=== PATIENT | female | born 1965 | race Caucasian/White ===

== ENCOUNTER → 2019-09-20 | Outpatient (CLI) | payer BC ==
[~2019-09-20] MED LIST: CHOL10002 PO; Cabergoline0.5 MG PO; Citalopram HBr20 MG PO
[2019-09-21 15:06] LABS: HPV 16 Negative (Negative); HPV 18 Negative (Negative); HPV OTHER HR TYPES Negative (Negative)
== END | disposition home or self-care (01) ==
LOC: LAB SHORT 12:36 → LAB 12:36
PROVIDERS: Obstetrics & Gynecology
DX: Z01.419 Encounter for gynecological examination (general) (routine) without abnormal findings (principal)
CPT/HCPCS: 87624; G0123

== ENCOUNTER → 2019-11-16 | Outpatient (CLI) | payer BC | END | disposition home or self-care (01) | LOC: LAB SHORT 07:30 → PLD 07:30 | DX: B36.1 Tinea nigra (principal); L60.2 Onychogryphosis | CPT/HCPCS: 88305; 88312 ==

== ENCOUNTER → 2020-10-16 | Outpatient (CLI) | payer BC ==
[2020-10-18 12:28] LABS: CORONAVIRUS (COVID19) CSH-NRL Negative (Negative)
== END | disposition home or self-care (01) ==
LOC: LAB SHORT 19:49 → LAB 19:49
PROVIDERS: Chiropractor
DX: B34.9 Viral infection, unspecified (principal); Z20.828 Contact with and (suspected) exposure to other viral communicable diseases
CPT/HCPCS: U0003

== ENCOUNTER 2021-04-26 10:56 | Emergency (ER) | payer OTHER ==
[~2021-04-26] VITALS: Ht 154.9 cm; Wt 69.4 kg
[2021-04-26] MEDS ORDERED: PRED20 PO (12:45)
== END 2021-04-26 13:05 | disposition home or self-care (01) ==
LOC: ER 10:56
DX: R07.81 Pleurodynia (principal); Z79.899 Other long term (current) drug therapy
CPT/HCPCS: 71260; 93005; 93010; 96374; 96375; 99285-25; J1100; J1885; Q9967

== ENCOUNTER 2023-04-01 06:30 | Inpatient (IN) | payer BC ==
[~2023-04-01] VITALS: Ht 154.9 cm; Wt 72.5 kg
[2023-04-01] VITALS (18 sets, daily range): BP systolic 128–176; BP diastolic 78–99
[~2023-04-01 06:30] MED LIST changes: +PRED20 PO
[2023-04-01] MEDS ORDERED: ESTR2 PO (07:06)
[2023-04-01] MEDS ORDERED: GINKGO60 MG (07:07)
--- NOTE | 2023-04-01 08:05 | NUR ---
0640 AMBULATE TO [facility], CONFIRMED SURGERY AND SURGEON, History, Chart, Medications and Allergies reviewed before start of procedure. LUNGS CLEAR. PRE OP TEACHING DONE, AT BEDSIDE. GLASSES GIVEN TO .
--- NOTE | 2023-04-01 11:24 | NUR ---
PT ARRIVED TO ROOM IN BED FROM PACU SPOUSE BEDSIDE. VSS. MOD AMOUNT LIGHT PINK DRAINAGE NOTED TO MEDIPORE DRESSING TO TRANSVERSE LOWER ABD. JODIE PAD CDI. MON CATH DRAINING YELLOW URINE. IV FLUIDS RUNNING PER ORDERS. KPAD TO ABD FOR COMFORT. PT C/O 08/08 ABD PAIN. STARTED SYSTEM DISPATCHER PER ORDERS. CALL LIGHT IN REACH.
--- NOTE | 2023-04-01 18:00 | NUR ---
SUMMARY NO ACUTE CHANGES SINCE ARRIVING TO FLOOR FROM PACU. PT HAS AMBULATED TO RESTROOM TWICE. MON CATH DC'D THIS EVENING PER ORDERS DUE TO PT'S DISCOMFORT. PT TOLERATED WELL. JODIE PAD CDI. MOD AMOUNT PINK DRAINAGE TO MEDIPORE DRESSING TO TRANSVERSE LOWER ABD HAS REMAINED UNCHANGED T/O SHIFT. PT AMBULATES W/SBA. CALL LIGHT AND VARNISH REMOVER IN REACH. MEDICATED ONCE DURING SHIFT FOR NAUSEA. PT EATING DINNER AT THIS TIME.
[2023-04-02 00:14] VITALS: BP 143/77
[2023-04-02 04:19] LABS: BASOPHILS ABSOLUTE AUTO 0.01 K/mm3 (0.00-0.23); BASOPHILS PERCENT AUTO 0 % (0-2); EOSINOPHILS PERCENT AUTO 0 % (0-6); Hematocrit 35.4 % (33.0-51.0); Hemoglobin 12.3 g/dL (11.5-16.0); IMMATURE GRAN ABSOLUTE AUTO 0.04 K/mm3 (0.00-0.10); IMMATURE GRAN PERCENT AUTO 0 % (0-1); LYMPHOCYTES PERCENT AUTO 12 % (21-46); MONOCYTES ABSOLUTE AUTO 1.07 K/mm3 (0.16-1.47); MONOCYTES PERCENT AUTO 8 % (4-13); Mean Corpuscular HGB 29.4 pg (26.0-34.0); Mean Corpuscular HGB Conc 34.7 g/dL (31.5-36.5); Mean Corpuscular Volume 85 fL (80-100); Mean Platelet Volume 10.4 fL (9.1-12.4); NEUTROPHILS ABSOLUTE AUTO 11.23 K/mm3 (1.96-9.15); NEUTROPHILS PERCENT AUTO 80 % (41-73); Platelet Count 287 K/mm3 (150-400); RDW Coefficient Variation 12.4 % (11.7-14.2); RDW Standard Deviation 37.9 fL (35.1-46.3); Red Blood Cell Count 4.19 M/mm3 (3.80-5.20); White Blood Cell Count 14.05 K/mm3 (4.00-11.30)
--- NOTE | 2023-04-02 05:07 | NUR ---
SHIFT SUMMARY, POD1 TOTAL HYSTER, TRANSVERSE DRESSING INTACT. MOD DRAINAGE NOTED. PT ABLE TO TAKE DRESSING OFF TODAY. PAIN MANAGED WITH FENT QUALITY ASSURANCE TECH. IV FLUIDS RUNNING. VSS. NO ACUTE EVENTS T/O THE NIGHT. PT ABLE TO AMBULATE, TOLLERATING PO W/O N/V, AND VOIDING W/O DIFFICULTY. VSS. PLAN FOR PT TO D/C TODAY. THE PATIENT IS RESTING, IN NO DISTRESS, CALL LIGHT IN REACH
[2023-04-02 05:23] VITALS: BP 150/78
[2023-04-02 07:23] VITALS: BP 149/85
--- NOTE | 2023-04-02 07:26 | NUR ---
04/02/23 0726 Shara Domínguez VERIFICATIONS: EDIT CHART.
[2023-04-02] MEDS ORDERED: Percocet 5-3251 EACH PO (14:26)
[2023-04-02] MEDS ORDERED: IBU800 M1 PO (14:27)
--- NOTE | 2023-04-02 14:43 | NUR ---
DISCHARGE: DR. ALMANZA IN ROOM AT ABOUT 1430. PT A/O, VSS. SURGICAL SITE WNL, NO VAGINAL BLEED, PT VOIDING AND PAIN MANAGED. DC PACKET PRINTED AND PT EDUCATED. IV DC'D WNL, TIP INTACT. PT LEFT UNIT ON FOOT, DENIED NEED FOR WHEELCHAIR AT 1440 WITH SPOUSE.
== END 2023-04-02 14:30 | disposition home or self-care (01) | DRG 743 ==
LOC: SURS 06:30 → PRE IP 08:00 → SURS 10:25
PROVIDERS: ADMIT Obstetrics & Gynecology
PROC: 0UB70ZZ Excision of Bilateral Fallopian Tubes, Open Approach (ICD-10-PCS; 2023-04-01)
PROC: 0UT90ZZ Resection of Uterus, Open Approach (ICD-10-PCS; principal; 2023-04-01 08:00)
DX: D25.9 Leiomyoma of uterus, unspecified (principal); N85.2 Hypertrophy of uterus; G47.33 Obstructive sleep apnea (adult) (pediatric); Z86.018 Personal history of other benign neoplasm; Z79.899 Other long term (current) drug therapy; Z98.890 Other specified postprocedural states
CPT/HCPCS: 36415; 85025; 88307; 94762; A9270; J0690; J1100; J1885; J2250; J2405; J2704; J2795; J3010; J7120